=== PATIENT | female | born 1980 | race Caucasian/White ===

== ENCOUNTER 2025-09-28 10:23 | Emergency (ER) | payer OTHER, SELFPAY ==
[2025-09-28 10:33] VITALS: BP 150/105; PULSE 86; TEMP 36.7; O2SAT 96; BMI 29.5
--- NOTE | 2025-09-28 10:53 | PC.NURSE ---
Thursday pt believed saw a pimple on left side of nostril and attempted to pop it. Today, area on left nostril is red and swollen. swelling radiates to left cheek and under eye.
--- NOTE | 2025-09-28 10:55 | ED.GENADUL1 ---
HPI HPI - General Adult General Chief complaint: Skin/Abscess/Foreign Body Stated complaint: facial pain/swelling Time Seen by Provider: 09/28/25 10:38 Source: patient Mode of arrival: walk-in Limitations: no limitations History of Present Illness HPI narrative: 44-year-old female presented to the emergency department for swelling and redness to the left side of her nose and below her left eye. She has had this for the last few days and she saw somebody in urgent care who told her to come here to get a CAT scan. She states she had a pimple and she popped it and a small amount of pus came out. No fever or vomiting. Related Data Home Medications ?Medication ?Instructions ?Recorded ?Confirmed amlodipine 10 mg tablet 10 mg PO DAILY 09/28/25 09/28/25 meloxicam 7.5 mg tablet 7.5 mg PO DAILY 09/28/25 09/28/25 Previous Rx's ?Medication ?Instructions ?Recorded cephalexin 500 mg capsule 500 mg PO QID 10 days #40 caps 09/28/25 sulfamethoxazole 800 1 tab PO BID 10 days #20 tabs 09/28/25 mg-trimethoprim 160 mg tablet (Bactrim DS) Allergies Allergy/AdvReac Type Severity Reaction Status Date / Time No Known Drug Allergies Allergy Verified 09/28/25 10:37 Opioid HPI Opioid Management Most Recent Opioid Data: Last Pain Scale 3 Today, 10:33 Review of Systems ROS Narrative A ten point review of systems is negative except as noted above. PFSH PFSH Social History Little interest or pleasure in doing things: not at all Feeling down, depressed, or hopeless: not at all Exam Narrative Exam Narrative: Nurses note and vital signs reviewed General:The patient appears well and in no apparent distress.Patient is resting comfortably on cart. Skin:Warm, dry, no pallor noted.There is no rash noted. Head:Normocephalic, atraumatic Eye: Normal conjunctiva, no drainage Ears, Nose, Mouth, and Throat: oral mucosa is moist. Nares patent. She has erythema on the left side of her nose and some swelling in the intranasal area. There is also erythema extending to the area below her left eye. No fluctuance or purulent drainage. Cardiovascular:Regular Rate and Rhythm Respiratory:Patient is in no distress, no accessory muscle use, lungs are clear to auscultation, no wheezing, rales or rhonchi Back:non-tender GI: Soft and nontender Musculoskeletal: The patient has no evidence of calf tenderness, no pitting edema, symmetrical pulses noted bilaterally Neurological:A&O, normal speech Psychiatric:Cooperative Constitutional Vital Signs, click to edit/add: Last Vital Signs Temp 98.0 F 09/28/25 10:33 Pulse 86 09/28/25 10:33 Resp 14 09/28/25 10:33 BP 150/105 H 09/28/25 10:33 Pulse Ox 96 09/28/25 10:33 Course Vital Signs Vital signs: Vital Signs Temperature 98.0 F 09/28/25 10:33 Pulse Rate 86 09/28/25 10:33 Respiratory Rate 14 09/28/25 10:33 Blood Pressure 150/105 H 09/28/25 10:33 Pulse Oximetry 96 09/28/25 10:33 Temperature 98.0 F 09/28/25 10:33 Pulse Rate 86 09/28/25 10:33 Respiratory Rate 14 09/28/25 10:33 Blood Pressure 150/105 H 09/28/25 10:33 Pulse Oximetry 96 09/28/25 10:33 Medical Decision Making MDM Narrative Medical decision making narrative: Blood work is essentially normal. CT scan shows cellulitis with a tiny abscess. She was given IV Ancef here and prescribe Bactrim and Keflex. She was referred to ENT for follow-up if she does not have improvement. Treatment diagnosis and follow-up were discussed with the patient. She was instructed to return if symptoms worsen. Differential Diagnosis Differential Diagnosis: Colitis, abscess Lab Data Lab results reviewed: Yes I reviewed the patient's lab results Labs: Lab Results 09/28/25 Range/Units 10:49 WBC 8.2 (4.0-11.0) 10^3/uL RBC 3.97 L (4.20-5.40) 10^6/uL Hgb 12.0 (12.0-16.0) g/dL Hct 34.5 L (36.0-48.0) % MCV 86.9 (81.0-99.0) fL MCH 30.2 (26.7-34.0) pg MCHC 34.8 (29.9-35.2) g/dL RDW 12.0 (11.0-15.0) % Plt Count 295 (150-450) 10^3/uL MPV 9.9 (9.5-13.5) fL Neut % (Auto) 71.6 (43.0-75.0) % Lymph % (Auto) 20.9 (20.5-60.0) % Pierce % (Auto) 6.3 (1.7-12.0) % Eos % (Auto) 0.6 L (0.9-7.0) % Baso % (Auto) 0.5 (0.2-2.0) % Neut # (Auto) 5.9 (1.4-6.5) 10^3/uL Lymph # (Auto) 1.7 (1.2-3.8) 10^3/uL Pierce # (Auto) 0.5 (0.3-0.8) 10^3/uL Eos # (Auto) 0.1 (0.0-0.7) 10^3/uL Baso # (Auto) 0.0 (0.0-0.1) 10^3/uL Abs Immat Gran (auto) 0.01 (0.00-0.03) 10^3/uL Imm/Tot Granulo (auto) 0.1 (0.0-0.5) % Sodium 139 (136-145) mmol/L Potassium 3.9 (3.5-5.1) mmol/L Chloride 103 (98-107) mmol/L Carbon Dioxide 28.6 (21.0-32.0) mmol/L Anion Gap 11.3 BUN 13.0 (7.0-18.0) mg/dL Creatinine 0.61 (0.55-1.02) mg/dL Est GFR ( Amer) >60 (>=60 mL/min/1.73m^2) Est GFR (Non-Af Amer) >60 (>=60 mL/min/1.73m^2) BUN/Creatinine Ratio 21.3 Glucose 91 (74-106) mg/dL Calcium 8.9 (8.5-10.1) mg/dL Imaging Data Facial bones: Radiologist's impression: ITS Impressions Facial Bones CT 09/28/25 10:59 IMPRESSION: LEFT CHEEK SOFT TISSUE SWELLING WITH SMALL POTENTIAL ABSCESS ALONG THE LEFT ASPECT OF THE NOSE MEASURING 7 X 6 X 11 MM.. Impression dictated by: Rolando Prince Jr., D.O. 09/28/2025 12:45 PM Dictation Location: [place] [address] Electronically authenticated by: [id number] Y Date: 09/28/2025 12:45 Discharge Plan Discharge Chief Complaint: Skin/Abscess/Foreign Body Clinical Impression: Cellulitis Patient Disposition: Home, Self-Care Time of Disposition Decision: 13:08 Condition: Good Mode of Transportation: Private Vehicle Prescriptions / Home Meds: New sulfamethoxazole-trimethoprim [Bactrim DS] 800-160 mg tablet 1 tab PO BID 10 Days Qty: 20 0RF cephalexin 500 mg capsule 500 mg PO QID 10 Days Qty: 40 0RF No Action meloxicam 7.5 mg tablet 7.5 mg PO DAILY amlodipine 10 mg tablet 10 mg PO DAILY Print Language: Sinhala Instructions: Cellulitis (ED), Warm Compress or Soak (ED) Referrals: Suellen Hughes MD [Physician, Ear, Nose, Throat] - 1 week Physician,Non-Staff, [Primary Care Provider] - 1 week Discharge Date/Time: 09/28/25 13:21
--- NOTE | 2025-09-28 10:59 | CT_ITS ---
The [address] [address] Patient Name: RHIANNON ANTHONY MRN: [id number] date: 1980 Sex: F Assigned Patient Location: ED.MAIN Current Patient Location: ED.MAIN Accession/Order Number: [id number] Exam Date: 09/28/2025 12:21 Report Date: 09/28/2025 12:45 At the request of: FLORA LUONG MD Procedure: CT facial bones w con MAXILLOFACIAL CT WITHOUT CONTRAST: CLINICAL HISTORY: Erythema, swelling, rule out abscess COMPARISON: None TECHNIQUE: Spiral axial unenhanced images were obtained through the facial bones. Coronal and sagittal reconstructions were also reviewed. This CT exam was performed using one or more following dose reduction techniques: Automated exposure control, adjustment of the mA and/or kV according to patient size, or use of iterative reconstruction technique. FINDINGS: No nasal bone fracture. No facial bone fracture. Orbital fracture. No mandibular fracture. Paranasal sinuses are clear. Mastoid air cells are well pneumatized. Intraorbital contents appear unremarkable. Left cheek soft tissue swelling extending along the left lateral aspect of the nose. A small collection is seen along the left aspect of the nose measuring approximately 7 x 6 x 11 mm.. Nasopharynx appears unremarkable.. CT/CT facial bones w con IMPRESSION: LEFT CHEEK SOFT TISSUE SWELLING WITH SMALL POTENTIAL ABSCESS ALONG THE LEFT ASPECT OF THE NOSE MEASURING 7 X 6 X 11 MM.. Impression dictated by: Rolando Prince Jr., D.O. 09/28/2025 12:45 PM Dictation Location: [place] [address] Electronically authenticated by: [id number] Y Date: 09/28/2025 12:45
[2025-09-28] MEDS: CEFAZOLIN SODIUM/DEXTROSE,ISO 1 GM/50 ML PREMIX IV (11:02)
[2025-09-28 11:07] LABS: Hematocrit 34.5 % (36.0-48.0); Hemoglobin 12.0 g/dL (12.0-16.0); Immature Granulocytes Abs Auto 0.01 10^3/uL (0.00-0.03); Immature Granulocytes Pct Auto 0.1 % (0.0-0.5); Lymphocytes Absolute Auto 1.7 10^3/uL (1.2-3.8); Mean Corpuscular HGB Conc 34.8 g/dL (29.9-35.2); Mean Corpuscular Hemoglobin 30.2 pg (26.7-34.0); Mean Corpuscular Volume 86.9 fL (81.0-99.0); Platelet Count 295 10^3/uL (150-450); Red Blood Count 3.97 10^6/uL (4.20-5.40); White Blood Count 8.2 10^3/uL (4.0-11.0)
[2025-09-28 11:12] LABS: Anion Gap 11.3; Blood Urea Nitrogen 13.0 mg/dL (7.0-18.0); Calcium 8.9 mg/dL (8.5-10.1); Carbon Dioxide 28.6 mmol/L (21.0-32.0); Chloride 103 mmol/L (98-107); Estimated GFR (African America >60 (>=60 mL/min/1.73m^2); Estimated GFR (Non-African Ame >60 (>=60 mL/min/1.73m^2); Glucose 91 mg/dL (74-106); Potassium 3.9 mmol/L (3.5-5.1); Sodium 139 mmol/L (136-145)
== END 2025-09-28 13:21 | disposition home or self-care (01) ==
PROVIDERS: Emergency Provider Emergency Medicine
DX: L03.211 Cellulitis of face (principal)
CPT/HCPCS: 36415; 70487; 80048; 85025; 96365; 99284; J0690; Q9967